=== PATIENT | female | born 1950 | race Caucasian/White ===

== ENCOUNTER → 2017-01-09 | Outpatient (CLI) | payer OTHER ==
[~2017-01-09] MED LIST: ADVAIR 250-501 EACH IH; ALBUTEROL; ALBUTEROL MININEB NEB; ALPRAZOLAM PO; ALPRAZOLAM0.25 MG PO; AMARYL PO; AMARYL2 MG PO; ANASTROZOLE1 MG PO; ATORVASTATIN CA40 MG PO; ATROVENT NASAL15 ML INH; B-121000 MC1 PO; CARDIZEM SR PO; CARDIZEM30 M1 PO; CARDIZEM30 M2 PO; CARDIZEM30 MG PO; COMBIVENT INH14.7 GM INH; COMBIVENT MININEB INH; COUMADIN PO; COUMADIN1 MG PO; COUMADIN2.5 MG PO; COUMADIN5 MG PO; DARVOCET-N 1001 TAB PO; DOCUSATE SODIU100 MG PO; FOLIC ACID PO; FOLIC ACID1 MG PO; FUROSEMIDE40 MG PO; GLIMEPIRIDE1 M1 PO; GLIMEPIRIDE2 MG PO; GLUCOPHAGE500 MG PO; IBUPROFEN PO; K-TAB ER20 MEQ PO; KCL PO; KEFLEX 500 MG PO; KLOR-CON PO; LASIX PO; LEVAQUIN PO; LIPITOR40 MG PO; LISINOPRIL2.5 MG PO; LORTAB 10-5001 EACH PO; METFORMIN HCL500 M1 PO; METHOTREXATE2.5 MG PO; MIRALAX255 GM PO; NASAL 02; NICOTINE T1 PATCH .2 TOP; PAROXETINE HCL20 M1 PO; PATIENT'S PHARMACY; PAXIL PO; PERCOCET 51 UDTAB 5/ PO; PHENERGAN12.5 MG PO; PHENERGAN25 MG PO; PRAVASTATIN SOD40 MG PO; PRAVASTATIN SOD80 MG PO; PREDNISOLONE5 MG PO; PREDNISONE 20 MG; PREDNISONE 5 MG PO; PREDNISONE PO; PREDNISONE5 M1 PO; PREDNISONE5 MG PO; PROMETHAZINE12.5 MG PO; PULMICORT200 MCG/AE INH; SIMVASTATIN40 MG PO; SPIRIVA 18MCG INH; SPIRIVA18 MCG INH; SYMBICORT INH; SYMBICORT80 INH; TUSSIN MAX15 MG/5 M1 PO; TYLENOL325 M1 PO; VIBRAMYCIN100 M1 PO; VITAMIN D1000 UNI1 PO; VYTORIN 10/20 T1 TAB PO; WARFARIN SODIU2.5 MG PO; ZESTRIL2.5 M1 PO; ZOCOR PO
--- NOTE | ~2017-01-09 | US24 ---
[facility] A Service of [facility] RADIOLOGY TEXT RESULTS PATIENT: ODETTE WILLIAMSON LOCATION: [facility] : 54 UNIT #: [id number] AGE: [address]: Juan Daniel Orozco MD SEX: F ORDER DR: [id number] [facility]. [place], [place] [address] [id number] O MR#: [id number] Acc #: [id number] NAME: ODETTE WILLIAMSON : 1950 SEX: F STUDY DATE/TIME: 01/09/2017 12:00 UNIT: [facility] ROOM: STUDY DESCRIPTION: US Breast Unilateral Attending Physician: Juan Daniel Orozco M.D. Ordering Physician: Juan Daniel Orozco M.D. Primary Care Physician: Juan Daniel Orozco M.D. MEDICAL IMAGING REPORT This report is preliminary unless electronic signature is present EXAM Right breast ultrasound. HISTORY Right breast cancer. Enlarging hematoma/seroma in the lumpectomy bed. FINDINGS Kim-scale and color Doppler ultrasound of the right breast was performed. The area of shadowing in the surgical site is fairly similar to the most recent mammogram. This area has decreased in size from the prior ultrasound. No evidence of malignancy. IMPRESSION 1. Postsurgical change of the right breast. No new findings. Patients over the age of 40 are entered into a reminder system with target due date for the next mammogram. A result letter will also be sent to the patient. BIRADS: 2. Benign examination Dictated by... Sky Patton M.D. THIS IS AN ELECTRONICALLY VERIFIED REPORT Sky Patton M.D. at 01/10/2017 7:41 AM C/jt [facility] A Service [facility] RADIOLOGY TEXT RESULTS PATIENT: ODETTE WILLIAMSON LOCATION: [facility] : 54 UNIT #: [id number] AGE: [address]: Juan Daniel Orozco MD SEX: F ORDER DR: TD: 01/09/2017 15:17 JOB #: [id number] MEDICAL IMAGING REPORT Page 1 of 1 COPY
--- NOTE | ~2017-01-09 | MY26 ---
[facility] A Service of [facility] RADIOLOGY TEXT RESULTS PATIENT: ODETTE WILLIAMSON LOCATION: [facility] : 54 UNIT #: [id number] AGE: [address]: Juan Daniel Orozco MD SEX: F ORDER DR: [id number] [facility] [address] [facility]. [place], [place] [address] [id number] O MR#: [id number] Acc #: [id number] NAME: ODETTE WILLIAMSON : 1950 SEX: F STUDY DATE/TIME: 01/09/2017 11:32 UNIT: [facility] ROOM: STUDY DESCRIPTION: MY [facility] DIAGNOSTIC W/ CAD BILAT Attending Physician: Juan Daniel Orozco M.D. Ordering Physician: Juan Dainel Orozco M.D. Primary Care Physician: Juan Daniel Orozco M.D. MEDICAL IMAGING REPORT This report is preliminary unless electronic signature is present EXAM Bilateral diagnostic mammogram with CAD and diagnostic right breast ultrasound. CLINICAL HISTORY 67-year-old female with personal history of right-sided breast cancer and right lumpectomy. The patient describes enlarging right soft tissue mass at the site of a prior hematoma/seroma. FINDINGS CC, MLO, and ML views of both breasts were obtained. Exaggerated CC views are obtained of the right breast. The background breast parenchyma consists of scattered fibroglandular densities. There is some architectural distortion and post-lumpectomy changes in the right breast. There is a well-circumscribed mass conforming to the palpable abnormality. This mass is unchanged from the prior study measuring approximately 2 cm in width and 2 cm in height. This is unchanged from the 11/15/2015 exam. The left breast is benign. Exam is compared to prior mammogram dated 11/15/2015 and 10/28/2014. RIGHT BREAST ULTRASOUND: The right breast ultrasound was performed. There is postsurgical change in the right breast. No suspicious mass or lesions identified. IMPRESSION 1. Postsurgical changes in the right breast with and associated hematoma/seroma. This appearance is unchanged from the 2016 comparison. RECOMMENDATIONS: Continue self-breast examination. Otherwise, annual screening mammogram. Patients over the age of 40 are entered into a reminder system with target due date for the next mammogram. A result letter will also be sent to the [facility] A Service of [facility] RADIOLOGY TEXT RESULTS PATIENT: ODETTE WILLIAMSON LOCATION: [facility] #: [id number] : 54 UNIT #: [id number] AGE: [address]: Juan Daniel Orozco MD SEX: F ORDER DR: patient. BIRADS: 2. Benign examination. Dictated by... Sky Patton M.D. THIS IS AN ELECTRONICALLY VERIFIED REPORT Sky Patton M.D. at 01/10/2017 7:41 AM EARL/dav TD: 01/09/2017 15:37 JOB #: [id number] MEDICAL IMAGING REPORT Page 1 of 1 COPY
== END | disposition home or self-care (01) ==
LOC: CMAM 10:51
DX: L76.34 Postprocedural seroma of skin and subcutaneous tissue following other procedure (principal); Z85.3 Personal history of malignant neoplasm of breast
CPT/HCPCS: 76641; G0204